=== PATIENT | male | born 1985 | race Caucasian/White ===

== ENCOUNTER 2018-07-10 23:19 | Emergency (ER) | payer MEDICARE, OTHER ==
[2018-07-10] MEDS ORDERED: ASPIRIN 81 MG TABLET, CHEWABLE PO ONE (23:50)
--- NOTE | 2018-07-10 23:50 | ER Document Report ---
ED Respiratory Problem - General Mode of Arrival: Ambulatory Information source: Patient TRAVEL OUTSIDE OF THE [place] IN LAST 30 DAYS: No <BREANNA BARTH - Last Filed: 07/10/18 23:56> <KARYN BANGURA - Last Filed: 07/11/18 03:07> - General Chief Complaint: Jaw Pain Stated Complaint: CHEST PAIN Time Seen by Provider: 07/10/18 23:40 Notes: Patient is a 33 year old male that presents to the emergency department today with complaints of jaw pain with associated lightheadedness. Patient states that he "might be panicking". Patient states that he was moving furniture most of the day today including 3 or 4 washing machines. Patient mentions he has a history of rhabdomyolysis but he states he thinks he was drinking enough water today to prevent that. Patient denies chest pain, cough, fever, or shortness of breath. (BREANNA BARTH) - Related Data Allergies/Adverse Reactions: No Known Allergies Allergy (Verified 01/13/16 13:49) Past Medical History - General Information source: Patient - Social History Smoking Status: Current Every Day Smoker Cigarette use (# per day): Yes Frequency of alcohol use: None Drug Abuse: None Family History: Reviewed & Not Pertinent Pulmonary Medical History: Reports: Hx Bronchitis Psychiatric Medical History: Reports: Hx Bipolar Disorder, Hx Depression, Hx Post Traumatic Stress Disorder, Hx Schizophrenia Traumatic Medical History: Reports: Hx Fractures - JAW Past Surgical History: Reports: Hx Orthopedic Surgery - JAW, left small finger - Immunizations Immunizations up to date: Yes Hx Diphtheria, Pertussis, Tetanus Vaccination: Yes <BREANNA BARTH - Last Filed: 07/10/18 23:56> Review of Systems - Review of Systems Constitutional: denies: Fever EENT: No symptoms reported Cardiovascular: See HPI, Lightheaded. denies: Chest pain Respiratory: denies: Cough, Short of breath Gastrointestinal: No symptoms reported Genitourinary: No symptoms reported Male Genitourinary: No symptoms reported Musculoskeletal: See HPI, Other - jaw pain Skin: No symptoms reported Hematologic/Lymphatic: No symptoms reported Neurological/Psychological: No symptoms reported -: Yes All other systems reviewed and negative <BREANNA BARTH - Last Filed: 07/10/18 23:56> Physical Exam - Vital signs Interpretation: Normal - General General appearance: Appears well, Alert - HEENT Head: Normocephalic, Atraumatic Eyes: Normal Pupils: PERRL - Respiratory Respiratory status: No respiratory distress Chest status: Nontender Breath sounds: Normal Chest palpation: Normal - Cardiovascular Rhythm: Regular Heart sounds: Normal auscultation Murmur: No - Abdominal Inspection: Normal Distension: No distension Bowel sounds: Normal Tenderness: Nontender Organomegaly: No organomegaly - Back Back: Normal, Nontender - Extremities General upper extremity: Normal inspection, Nontender, Normal color, Normal ROM , Normal temperature General lower extremity: Normal inspection, Nontender, Normal color, Normal ROM , Normal temperature, Normal weight bearing. No: Mirian's sign - Neurological Neuro grossly intact: Yes Cognition: Normal Orientation: AAOx4 Haiku Coma Scale Eye Opening: Spontaneous Haiku Coma Scale Verbal: Oriented [place]iku Coma Scale Motor: Obeys Commands Haiku Coma Scale Total: 15 Speech: Normal Motor strength normal: LUE, RUE, LLE, RLE Sensory: Normal - Psychological Associated symptoms: Normal affect, Normal mood - Skin Skin Temperature: Warm Skin Moisture: Dry Skin Color: Normal <KARYN BANGURA - Last Filed: 07/11/18 03:07> - Vital signs Vitals: Temp Pulse Resp BP Pulse Ox 98.2 F 72 16 163/93 H 99 07/10/18 23:29 07/10/18 23:29 07/10/18 23:29 07/10/18 23:29 07/10/18 23:29 Course <BREANNA BARTH - Last Filed: 07/10/18 23:56> - Laboratory Result Diagrams: 07/11/18 00:20 07/11/18 00:20 - Diagnostic Test Radiology reviewed: Reports reviewed - EKG Interpretation by Ct EKG shows normal: Sinus rhythm Rate: Normal Rhythm: NSR <KARYN BANGURA - Last Filed: 07/11/18 03:07> - Re-evaluation Re-evalutation: 07/11/18 01:39 No c/o at this time. Updated on CXR and blood work. 07/11/18 03:05 Patient with no further complaints or symptoms. EKG within normal limits. Troponin negative 2. Patient is feeling well would like to go home. Very low risk for cardiac disease. Heart score is 1. Patient is to follow-up with his doctor this week, stop smoking, return if there are any worsening or concerning symptoms. Understands plan. Stable for discharge. (KARYN BANGURA) - Vital Signs Vital signs: Temp Pulse Resp BP Pulse Ox 98.2 F 72 18 118/63 97 07/10/18 23:29 07/10/18 23:29 07/11/18 03:01 07/11/18 03:01 07/11/18 03:01 - Laboratory Laboratory results interpreted by me: 07/11/18 07/11/18 00:20 00:20 WBC 13.1 H Absolute Monocytes 1.5 H Absolute Eosinophils 0.7 H Creatine Kinase 449 H Discharge <BREANNA BARTH - Last Filed: 07/10/18 23:56> <KARYN BANGURA - Last Filed: 07/11/18 03:07> - Discharge Clinical Impression: Atypical chest pain Condition: Stable Disposition: HOME, SELF-CARE Instructions: Chest Pain of Unclear Cause ([facility]) Additional Instructions: Please follow-up with your doctor this week. Please stop smoking. Forms: Smoking Cessation Education Scribe Attestation: 07/11/18 03:06 I personally performed the services described in the documentation, reviewed and edited the documentation which was dictated to the scribe in my presence, and it accurately records my words and actions. (KARYN BANGURA) Scribe Documentation - Scribe Written by Savannah:: Savannah Lau, 07/11/2018 0010 acting as scribe for :: Ministerio <BREANNA BARTH - Last Filed: 07/10/18 23:56>
--- NOTE | 2018-07-11 00:30 | RADIOLOGY REPORT (SQ) ---
EXAM DESCRIPTION: XR CHEST 2 VIEWS COMPLETED DATE/TME: 07/10/2018 23:50 CLINICAL HISTORY: CP COMPARISON: 01/13/2016 FINDINGS: Frontal and lateral views of the chest. The cardiomediastinal silhouette has normal size and contour. No consolidation, pneumothorax, or pleural effusion. No displaced rib fractures identified. Leads overlie the chest. Upper abdominal soft tissues are unremarkable. IMPRESSION: 1. No acute pulmonary process identified.
[2018-07-11 00:33] LABS: ABSOLUTE BASOPHILS # (AUTO) 0.1 10^3/uL (0.0-0.2); ABSOLUTE EOSINOPHILS # (AUTO) 0.7 10^3/uL (0.0-0.6); ABSOLUTE LYMPHOCYTES (AUTO) 4.7 10^3/uL (0.5-4.7); ABSOLUTE MONOCYTES (AUTO) 1.5 10^3/uL (0.1-1.4); ABSOLUTE NEUT (AUTO) 6.1 10^3/uL (1.7-8.2); BASOPHILS % (AUTO) 0.8 % (0-2); HEMATOCRIT 44.4 % (37.9-51.0); HEMOGLOBIN 15.3 g/dL (13.5-17.0); LYMPHOCYTES % (AUTO) 36.2 % (13-45); MEAN CORPUSCULAR HEMOGLOBIN 30.1 pg (27.0-33.4); MEAN CORPUSCULAR HGB CONC 34.6 g/dL (32.0-36.0); MEAN CORPUSCULAR VOLUME 87 fl (80-97); MONOCYTES % (AUTO) 11.7 % (3-13); PLATELET COUNT 253 10^3/uL (150-450); RED CELL DISTRIBUTION WIDTH 13.6 % (11.5-14.0); SEGMENTED NEUTROPHILS % (AUTO) 46.3 % (42-78); TOTAL CELLS COUNTED % (AUTO) 100 %; WHITE BLOOD COUNT 13.1 10^3/uL (4.0-10.5)
[2018-07-11 00:55] LABS: ALANINE AMINOTRANSFERASE 43 U/L (21-72); ALBUMIN 4.1 g/dL (3.5-5.0); ALKALINE PHOSPHATASE 71 U/L (38-126); ANION GAP 11 (5-19); ASPARTATE AMINO TRANSFERASE 34 U/L (17-59); BILIRUBIN,DIRECT 0.2 mg/dL (0.0-0.4); BILIRUBIN,TOTAL 0.4 mg/dL (0.2-1.3); BLOOD UREA NITROGEN 10 mg/dL (7-20); CALCIUM 9.4 mg/dL (8.4-10.2); CARBON DIOXIDE 27 mmol/L (22-30); CHLORIDE 103 mmol/L (98-107); CREATINE KINASE 449 U/L (55-170); GLUCOSE 88 mg/dL (75-110); SODIUM 141.3 mmol/L (137-145); TOTAL PROTEIN 6.9 g/dL (6.3-8.2)
[2018-07-11] MEDS ORDERED: NORMAL SALINE 1000 ML 1,000 ML IV ONE (00:56)
[2018-07-11 01:06] LABS: CREATINE KINASE MB 1.38 ng/mL (<4.55)
[2018-07-11 01:10] LABS: TROPONIN I < 0.012 ng/mL
[2018-07-11 03:05] VITALS: BP 118/63
--- NOTE | 2018-07-11 07:40 | EKG REPORT ---
SEVERITY:- ABNORMAL ECG - SINUS RHYTHM LEFT ANTERIOR FASCICULAR BLOCK : Confirmed by: Tone Desir MD 11-Jul-2018 07:39:44
== END 2018-07-11 03:14 | disposition home or self-care (01) ==
LOC: ER 23:19
DX: R07.89 Other chest pain (principal); R68.84 Jaw pain; R42 Dizziness and giddiness; F17.210 Nicotine dependence, cigarettes, uncomplicated
CPT/HCPCS: 93005; 99284; 96360; 36415; 82553; 82550; 85025; 80053; 84484; 71046; 93010; A9270; J7030

== ENCOUNTER 2018-09-07 14:52 | Emergency (ER) | payer MEDICARE ==
--- NOTE | 2018-09-07 15:23 | ER Document Report ---
ED Medical Screen (RME) - General Chief Complaint: Psych Problem Stated Complaint: TROUBLE SLEEPING Time Seen by Provider: 09/07/18 15:18 TRAVEL OUTSIDE OF THE [place] IN LAST 30 DAYS: No - HPI Notes: 09/07/18 15:22 Insomnia paranoia noncompliant with his medication states that he has been taking his Abilify has not received his second shot but never a month was seen at [facility] today and was given 1 tablet of Haldol - Related Data Allergies/Adverse Reactions: codeine Allergy (Verified 09/07/18 15:06) Past Medical History - Social History Frequency of alcohol use: every other weekened Drug Abuse: None Pulmonary Medical History: Reports: Hx Bronchitis Renal/ Medical History: Denies: Hx Peritoneal Dialysis Psychiatric Medical History: Reports: Hx Bipolar Disorder, Hx Depression, Hx Post Traumatic Stress Disorder, Hx Schizophrenia Traumatic Medical History: Reports: Hx Fractures - JAW Past Surgical History: Reports: Hx Orthopedic Surgery - JAW, left small finger 5th metatarsal - Immunizations Immunizations up to date: Yes Hx Diphtheria, Pertussis, Tetanus Vaccination: Yes Review of Systems - Review of Systems Neurological/Psychological: Other - Insomnia paranoia Physical Exam - Vital signs Vitals: Temp Pulse Resp BP Pulse Ox 98.7 F 90 16 163/88 H 96 09/07/18 15:03 09/07/18 15:03 09/07/18 15:03 09/07/18 15:03 09/07/18 15:03 - Respiratory Respiratory status: No respiratory distress Chest status: Nontender Breath sounds: Normal Chest palpation: Normal - Cardiovascular Rhythm: Regular Heart sounds: Normal auscultation Course - Vital Signs Vital signs: Temp Pulse Resp BP Pulse Ox 98.7 F 90 16 163/88 H 96 09/07/18 15:03 09/07/18 15:03 09/07/18 15:03 09/07/18 15:03 09/07/18 15:03
[2018-09-07 16:22] LABS: ABSOLUTE BASOPHILS # (AUTO) 0.1 10^3/uL (0.0-0.2); ABSOLUTE EOSINOPHILS # (AUTO) 0.5 10^3/uL (0.0-0.6); ABSOLUTE LYMPHOCYTES (AUTO) 2.6 10^3/uL (0.5-4.7); ABSOLUTE MONOCYTES (AUTO) 1.5 10^3/uL (0.1-1.4); ABSOLUTE NEUT (AUTO) 8.8 10^3/uL (1.7-8.2); BASOPHILS % (AUTO) 0.8 % (0-2); EOSINOPHILS % (AUTO) 3.9 % (0-6); HEMATOCRIT 46.9 % (37.9-51.0); LYMPHOCYTES % (AUTO) 19.1 % (13-45); MEAN CORPUSCULAR HEMOGLOBIN 29.6 pg (27.0-33.4); MEAN CORPUSCULAR HGB CONC 34.1 g/dL (32.0-36.0); MEAN CORPUSCULAR VOLUME 87 fl (80-97); MONOCYTES % (AUTO) 10.8 % (3-13); PLATELET COUNT 256 10^3/uL (150-450); RED BLOOD COUNT 5.42 10^6/uL (4.35-5.55); RED CELL DISTRIBUTION WIDTH 13.2 % (11.5-14.0); SEGMENTED NEUTROPHILS % (AUTO) 65.4 % (42-78); TOTAL CELLS COUNTED % (AUTO) 100 %; WHITE BLOOD COUNT 13.5 10^3/uL (4.0-10.5)
[2018-09-07 16:25] LABS: ALANINE AMINOTRANSFERASE 30 U/L (21-72); ALBUMIN 4.7 g/dL (3.5-5.0); ALKALINE PHOSPHATASE 88 U/L (38-126); ANION GAP 11 (5-19); ASPARTATE AMINO TRANSFERASE 31 U/L (17-59); BILIRUBIN,DIRECT 0.3 mg/dL (0.0-0.4); BILIRUBIN,TOTAL 0.9 mg/dL (0.2-1.3); BLOOD UREA NITROGEN 12 mg/dL (7-20); CALCIUM 9.5 mg/dL (8.4-10.2); CARBON DIOXIDE 27 mmol/L (22-30); CHLORIDE 102 mmol/L (98-107); GLUCOSE 91 mg/dL (75-110); POTASSIUM 4.3 mmol/L (3.6-5.0); SODIUM 139.6 mmol/L (137-145); TOTAL PROTEIN 8.1 g/dL (6.3-8.2)
[2018-09-07 16:32] LABS: ACETAMINOPHEN < 10 ug/mL (10-30); ALCOHOL < 10 mg/dL (NONE DETECTED); SALICYLATE < 1.0 mg/dL (2.0-20.0)
--- NOTE | 2018-09-07 16:32 | ER Document Report ---
ED General - General Chief Complaint: Psych Problem Stated Complaint: TROUBLE SLEEPING Time Seen by Provider: 09/07/18 15:18 Notes: Patient is a 33-year-old male with bipolar disorder and PTSD that presents to the emergency department for chief complaint of insomnia and feeling manic. Patient reports he has been having these symptoms particularly of insomnia since Wednesday, he has not had any sleep at all since then, he states his mind is racing, and when he tries to go to sleep, he states he yells out the Lord's name , and continues to be awake. He has had problems with this in the past, he is currently on Abilify, he took one extra dose, thinking it would help get him to sleep but did not and he thinks he may have made it worse. Denies any hallucinations or hearing any voices, denies suicidal homicidal ideation at this time. He states he wants to get better, and he feels very stressed out. Past Medical History: Bipolar disorder, PTSD Past Surgical History: Orthopedic surgery Social History: Admits to smoking cigarettes, rare alcohol use, denies illicit drug use Family History: Reviewed and noncontributory for presenting illness Allergies: Reviewed, see documented allergy list. REVIEW OF SYSTEMS: Unless otherwise stated in this report the patient's positive and negative responses for review of systems for constitutional, eyes, ENT, cardiovascular, respiratory, gastrointestinal, neurological, genitourinary, musculoskeletal, and integumentary systems and related systems to the presenting problem are either as stated in the HPI or were not pertinent or were negative for the symptoms and/or complaints related to the presenting medical problem. PHYSICAL EXAMINATION: Vital signs reviewed, nursing noted reviewed. GENERAL: Well-appearing, well-nourished, patient is rather anxious, pressured speech HEAD: Atraumatic, normocephalic. EYES: Eyes appear normal, extraocular movements intact, sclera anicteric, conjunctiva are normal. ENT: nares patent, oropharynx clear without exudates. Moist mucous membranes. NECK: Normal range of motion, supple without lymphadenopathy LUNGS: Breath sounds clear to auscultation bilaterally and equal. No wheezes rales or rhonchi. HEART: Regular rate and rhythm without murmurs ABDOMEN: Soft, nontender, normoactive bowel sounds. No rebound, guarding, or rigidity. No masses appreciated. EXTREMITIES: Nontender, good range of motion, no pitting or edema. NEUROLOGICAL: No focal neurological deficits. Moves all extremities spontaneously Motor and sensory grossly intact on exam. PSYCH: Anxious, pressured speech, pacing in the room SKIN: Warm, Dry, normal turgor, no rashes or lesions noted on exposed skin TRAVEL OUTSIDE OF THE [place] IN LAST 30 DAYS: No - Related Data Allergies/Adverse Reactions: codeine Allergy (Verified 09/07/18 15:06) Past Medical History - Social History Smoking Status: Current Every Day Smoker Frequency of alcohol use: every other weekened Drug Abuse: None Family History: Reviewed & Not Pertinent Patient has suicidal ideation: No Patient has homicidal ideation: No Pulmonary Medical History: Reports: Hx Bronchitis Renal/ Medical History: Denies: Hx Peritoneal Dialysis Psychiatric Medical History: Reports: Hx Bipolar Disorder, Hx Depression, Hx Post Traumatic Stress Disorder, Hx Schizophrenia Traumatic Medical History: Reports: Hx Fractures - JAW Past Surgical History: Reports: Hx Orthopedic Surgery - JAW, left small finger 5th metatarsal - Immunizations Immunizations up to date: Yes Hx Diphtheria, Pertussis, Tetanus Vaccination: Yes Physical Exam - Vital signs Vitals: Temp Pulse Resp BP Pulse Ox 98.7 F 90 16 163/88 H 96 09/07/18 15:03 09/07/18 15:03 09/07/18 15:03 09/07/18 15:03 09/07/18 15:03 Course - Re-evaluation Re-evalutation: Patient seen and examined, vital signs reviewed. Medical screening testing was ordered including bloodwork, EKG, and toxicology. Results of testing were reviewed. Testing demonstrated mild leukocytosis, no evidence of infection on exam or in urine. Patient has been stable from a hemodynamic standpoint. At this point I feel that the patient is medically cleared and can be further evaluated from a psychiatric standpoint for final disposition from the emergency department. Patient is clearly in a manic state, medications ordered as recommended by psychiatry, started on BuSpar 10 mg twice daily, Haldol 5 mg twice daily, Depakote 1000 mg nightly, and Cogentin 1 mg nightly, he was also given a one-time IM injection of Geodon, after reevaluation the patient was feeling better, and more calm. Patient updated on plan of care. Laboratory 09/07/18 09/07/18 09/07/18 15:28 15:28 15:28 WBC 13.5 H RBC 5.42 Hgb 16.0 Hct 46.9 MCV 87 MCH 29.6 MCHC 34.1 RDW 13.2 Plt Count 256 Seg Neutrophils % 65.4 Lymphocytes % 19.1 Monocytes % 10.8 Eosinophils % 3.9 Basophils % 0.8 Absolute Neutrophils 8.8 H Absolute Lymphocytes 2.6 Absolute Monocytes 1.5 H Absolute Eosinophils 0.5 Absolute Basophils 0.1 Sodium 139.6 Potassium 4.3 Chloride 102 Carbon Dioxide 27 Anion Gap 11 BUN 12 Creatinine 0.79 Est GFR ( Amer) > 60 Est GFR (Non-Af Amer) > 60 Glucose 91 Calcium 9.5 Total Bilirubin 0.9 Direct Bilirubin 0.3 Neonat Total Bilirubin Not Reportable Neonat Direct Bilirubin Not Reportable Neonat Indirect Bili Not Reportable AST 31 ALT 30 Alkaline Phosphatase 88 Total Protein 8.1 Albumin 4.7 Urine Color YELLOW Urine Appearance CLEAR Urine pH 7.0 Ur Specific [place] 1.012 Urine Protein NEGATIVE Urine Glucose (UA) NEGATIVE Urine Ketones TRACE H Urine Blood NEGATIVE Urine Nitrite NEGATIVE Urine Bilirubin NEGATIVE Urine Urobilinogen NEGATIVE Ur Leukocyte Esterase NEGATIVE Urine WBC (Auto) 0 Urine RBC (Auto) 1 Urine Bacteria (Auto) TRACE Squamous Epi Cells Auto <1 Urine Mucus (Auto) RARE Urine Ascorbic Acid NEGATIVE Salicylates < 1.0 L Urine Opiates Screen Urine Methadone Screen Acetaminophen < 10 L Ur Barbiturates Screen Valproic Acid < 10.0 L Ur Phencyclidine Scrn Ur Amphetamines Screen U Benzodiazepines Scrn Urine Cocaine Screen U Marijuana (THC) Screen Serum Alcohol < 10 09/07/18 15:28 WBC RBC Hgb Hct MCV MCH MCHC RDW Plt Count Seg Neutrophils % Lymphocytes % Monocytes % Eosinophils % Basophils % Absolute Neutrophils Absolute Lymphocytes Absolute Monocytes Absolute Eosinophils Absolute Basophils Sodium Potassium Chloride Carbon Dioxide Anion Gap BUN Creatinine Est GFR ( Amer) Est GFR (Non-Af Amer) Glucose Calcium Total Bilirubin Direct Bilirubin Neonat Total Bilirubin Neonat Direct Bilirubin Neonat Indirect Bili AST ALT Alkaline Phosphatase Total Protein Albumin Urine Color Urine Appearance Urine pH Ur Specific [place] Urine Protein Urine Glucose (UA) Urine Ketones Urine Blood Urine Nitrite Urine Bilirubin Urine Urobilinogen Ur Leukocyte Esterase Urine WBC (Auto) Urine RBC (Auto) Urine Bacteria (Auto) Squamous Epi Cells Auto Urine Mucus (Auto) Urine Ascorbic Acid Salicylates Urine Opiates Screen NEGATIVE Urine Methadone Screen NEGATIVE Acetaminophen Ur Barbiturates Screen NEGATIVE Valproic Acid Ur Phencyclidine Scrn NEGATIVE Ur Amphetamines Screen NEGATIVE U Benzodiazepines Scrn NEGATIVE Urine Cocaine Screen NEGATIVE U Marijuana (THC) Screen NEGATIVE Serum Alcohol - Vital Signs Vital signs: Temp Pulse Resp BP Pulse Ox 98.7 F 90 16 163/88 H 96 09/07/18 15:03 09/07/18 15:03 09/07/18 15:03 09/07/18 15:03 09/07/18 15:03 - Laboratory Result Diagrams: 09/07/18 15:28 09/07/18 15:28 Laboratory results interpreted by me: 09/07/18 09/07/18 09/07/18 15:28 15:28 15:28 WBC 13.5 H Absolute Neutrophils 8.8 H Absolute Monocytes 1.5 H Urine Ketones TRACE H Salicylates < 1.0 L Acetaminophen < 10 L Valproic Acid < 10.0 L - EKG Interpretation by Me Additional EKG results interpreted by me: EKG demonstrates sinus rhythm with a ventricular rate of 76 bpm, left axis deviation, normal intervals, QTC 419 ms, no evidence of acute ischemia, this compared with prior EKG from 07/10/2018, without significant change. Discharge - Discharge Clinical Impression: Manic episode Insomnia Qualifiers: Insomnia type: unspecified Qualified Code(s): G47.00 - Insomnia, unspecified Condition: Stable
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
[2018-09-07 17:10] LABS: APPEARANCE,URINE CLEAR; BILIRUBIN,URINE NEGATIVE (NEGATIVE); COLOR,URINE YELLOW; GLUCOSE, URINE NEGATIVE (NEGATIVE); KETONES,URINE TRACE mg/dL (NEGATIVE); LEUKOCYTE ESTERASE,URINE NEGATIVE (NEGATIVE); NITRITE,URINE NEGATIVE (NEGATIVE); PROTEIN,URINE NEGATIVE (NEGATIVE); URINE SPECIFIC GRAVITY 1.012; UROBILINOGEN,URINE NEGATIVE mg/dL (<2.0)
[2018-09-07 17:18] LABS: URINE AMPHETAMINES SCREEN NEGATIVE; URINE BARBITURATES SCREEN NEGATIVE; URINE BENZODIAZEPINES SCREEN NEGATIVE; URINE COCAINE SCREEN NEGATIVE; URINE MARIJUANA (THC) SCREEN NEGATIVE; URINE METHADONE SCREEN NEGATIVE; URINE PHENCYCLIDINE SCREEN NEGATIVE
[2018-09-07] MEDS ORDERED: ZIPRASIDONE MESYLATE INJ/PF 20 MG SDV IM ONE (17:47)
[2018-09-07] MEDS: HALOPERIDOL 5 MG TABLET PO SCH (17:51)
[2018-09-07] MEDS: BUSPIRONE HCL 10 MG TABLET PO SCH (17:51)
[2018-09-07] MEDS ORDERED: NICOTINE 21 MG/24 HR PATCH.TD24 TD ONE (18:02)
[2018-09-07] MEDS ORDERED: BENZTROPINE MESYLATE 1 MG TABLET PO SCH (22:00)
[2018-09-07] MEDS ORDERED: DIVALPROEX SODIUM 500 MG TAB.SR.24H PO SCH (22:00)
--- NOTE | 2018-09-07 22:38 | EKG REPORT ---
SEVERITY:- ABNORMAL ECG - SINUS RHYTHM PROBABLE INFERIOR INFARCT, OLD : Confirmed by: Adilene Gamboa 07-Sep-2018 22:37:24
[2018-09-08] MEDS: BUSPIRONE HCL 10 MG TABLET PO SCH (09:07)
[2018-09-08] MEDS: HALOPERIDOL 5 MG TABLET PO SCH (09:07)
--- NOTE | 2018-09-08 10:21 | ER Document Report ---
Doctor's Note Notes: 09/08/18 10:14 Rounds: Chart reviewed and patient interviewed. Patient is still somewhat hyper and behavior and speech. Being evaluated for insomnia. Known schizoaffective disorder and PTSD. Patient is complaining that they took his CPAP machine away last night. Nursing staff reports that they removed his CPAP machine for safety reasons. I have ordered that they put the CPAP machine back in the patient's room. Vital signs are all essentially normal. Blood pressure slightly elevated 160/88. Patient is on no medications for blood pressure. Advised him to have his blood pressure rechecked in a couple of weeks by a family physician. Lab studies had a white count of 13,500 but no obvious source of infection. Otherwise, all lab studies are essentially normal. Patient appears to be medically stable for transfer or discharge. Andrea Reinoso MD
--- NOTE | 2018-09-08 12:27 | PSYCHOLOGICAL NOTE ---
Psych Note - Psych Note Date seen by psych provider: 09/08/18 Time seen by psych provider: 08:05 Psych Note: Reason for consult: Manic Consent permissions: Patient's mother, Tiera, is at bedside per patient's request; [phone] patient stating he has not been able to sleep for several nights and is having bizzarre thoughts. Pt reports he is bipolar and on abilify and hydroxyzine and is not helping. pt denies any homicidal or suicidal thoughts. Check in conducted with patient Patient is not presenting with continued difficulties with controlling his emotions. When asked about his medications and why there is no Depakote in his system when it is prescribed he stated "I stopped taking that along time ago." When asked why he was taken off the Depakote he stated that he felt he was doing damaged his kidneys. When asked if he was directed by the doctor to stop taking the medication he denied stating that he stopped himself because he " just had a feeling"and was "tired of being tired all the time... all I did was sleep." Patient asked about his CPAP machine it was explained that while he is not sleeping he cannot stay in the room however if he is going to sleep he absolutely can have it. He reports that he slept a long time last night. When it was reminded that he only slept 2 hours as noted by [facility] staff patient argued saying that he slept much longer than that. Patient has been observed pacing with irritable interactions with [facility] staff. medication recommendations per [facility]'s contracted psychiatrist Dr. Azeb HENSON are as follows Please discontinue home medication of Abilify Please add BuSpar 10 mg twice daily Please add Haldol 5 mg twice daily Please continue Depakote 1000 mg nightly Please continue Cogentin 1 mg nightly Please add Geodon 20 mg IM once 295.40 (F25.1) Schizoaffective Disorder, Bipolar Type, per history 309.81 (F43.10) Posttraumatic Stress Disorder, per history Impression\\plan: Patient is recommended for continued IVC. Patient is continuing to demonstrate difficulties control his emotions. Patient only slept for approximately 2 hours last night. Today he admits to stopping his Depakote without physician recommendation. There is concerned that between the patient stopping his Depakote and it doubling up on his Abilify has resulted his current presentation. Patient has been accepted to [facility]; transportation will occur today. Dr. Winston was consulted and the care management this patient; attending physicians in agreement with recommendations and disposition.
[2018-09-08 13:58] VITALS: BP 154/88
== END 2018-09-08 14:00 ==
LOC: ER 14:52
DX: F30.9 Manic episode, unspecified (principal); G47.00 Insomnia, unspecified; F43.10 Post-traumatic stress disorder, unspecified; Z79.899 Other long term (current) drug therapy; F17.210 Nicotine dependence, cigarettes, uncomplicated
CPT/HCPCS: 93005; 99285; 96372; 36415; 80307 ×4; 85025; 80053; 81001; 80164; 93010; A9270 ×6; J3486

== ENCOUNTER 2019-08-05 22:10 | Emergency (ER) | payer MEDICARE, OTHER ==
[2019-08-05 22:45] VITALS: BP 165/92
[2019-08-05] MEDS ORDERED: NEOMY SULF/POLYMYX B SULF/HC OTIC SUSP 10 ML AD ONE (22:58)
--- NOTE | 2019-08-05 22:59 | ER Document Report ---
HPI - HPI Patient complains to provider of: left ear pain Time Seen by Provider: 08/05/19 22:53 Onset: This evening Onset/Duration: Sudden Quality of pain: Achy Severity: Severe Pain Level: 4 Context: This 34-year-old male presents emergency department with sudden onset left ear pain. Reports he has not been swimming. Denies fever vomiting diarrhea. Denies trauma. Reports he just noticed that his ear was hurting a stick anything in it. Associated Symptoms: None Exacerbated by: Denies Relieved by: Denies Similar symptoms previously: No Recently seen / treated by doctor: No Past Medical History - General Information source: Patient - Social History Smoking Status: Never Smoker Cigarette use (# per day): No Frequency of alcohol use: None Drug Abuse: None Family History: Reviewed & Not Pertinent Patient has suicidal ideation: No Patient has homicidal ideation: No Pulmonary Medical History: Reports: Hx Bronchitis Renal/ Medical History: Denies: Hx Peritoneal Dialysis Psychiatric Medical History: Reports: Hx Bipolar Disorder, Hx Depression, Hx Post Traumatic Stress Disorder, Hx Schizophrenia Traumatic Medical History: Reports: Hx Fractures - JAW Past Surgical History: Reports: Hx Orthopedic Surgery - JAW, left small finger 5th metatarsal - Immunizations Immunizations up to date: Yes Hx Diphtheria, Pertussis, Tetanus Vaccination: Yes Vertical Provider Document - CONSTITUTIONAL Agree With Documented VS: Yes Exam Limitations: No Limitations General Appearance: WD/WN, No Apparent Distress - INFECTION CONTROL TRAVEL OUTSIDE OF THE [place] IN LAST 30 DAYS: No - HEENT HEENT: Atraumatic, Normocephalic. negative: Pharyngeal Erythema, Tympanic Membrane Red - left EAC with erythema swelling no discharge - NECK Neck: Supple - RESPIRATORY Respiratory: No Respiratory Distress - CARDIOVASCULAR Cardiovascular: Regular Rate - MUSCULOSKELETAL/EXTREMETIES Musculoskeletal/Extremeties: MAEW, FROM, Non-Tender - NEURO Level of Consciousness: Awake, Alert, Appropriate Motor/Sensory: No Motor Deficit - DERM Integumentary: Warm, Dry Course - Re-evaluation Re-evalutation: 08/05/19 23:01 Otitis externa noted. Patient was instructed on Cortisporin otic suspension drops. He was instructed on signs and symptoms of allergic reaction. He was instructed to follow-up with his primary care provider for recheck within 1 week. - Vital Signs Vital signs: Temp Pulse Resp BP Pulse Ox 98.0 F 68 18 165/92 H 95 08/05/19 22:44 08/05/19 22:44 08/05/19 22:44 08/05/19 22:44 08/05/19 22:44 Discharge - Discharge Clinical Impression: Left otitis externa Condition: Stable Disposition: HOME, SELF-CARE Instructions: Acetaminophen, Use of Ear Drops ([facility]) Additional Instructions: *You have been evaluated for ear pain, otitis externa *Use ear drops as prescribed- Instill 4 drops in left ear 3 times daily for 7 days *Follow up with a primary care provider within one week for recheck *Return to ED for worsening condition, changes, needs, increased pain
== END 2019-08-05 23:09 | disposition home or self-care (01) ==
LOC: ER 22:10
DX: H60.92 Unspecified otitis externa, left ear (principal); H92.02 Otalgia, left ear
CPT/HCPCS: J3490